=== PATIENT | female | born 1990 | race American Indian/Alaskan Native ===

== ENCOUNTER 2021-02-10 22:47 | Emergency (ER) | payer OTHER ==
[2021-02-11 01:57] LABS: HCG Qualitative,Urine Negative (Negative)
[2021-02-11 01:58] LABS: Bilirubin,Urine NEG (Negative); Blood,Urine NEG (Negative); Color,Urine Yellow (Yellow); Protein,Urine <15 mg/dL mg/dL (Negative)
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
[2021-02-11 07:36] VITALS: BP 134/84
== END 2021-02-11 07:34 | disposition home or self-care (01) ==
LOC: ED 22:47
DX: S16.1XXA Strain of muscle, fascia and tendon at neck level, initial encounter (principal); S29.012A Strain of muscle and tendon of back wall of thorax, initial encounter; S89.92XA Unspecified injury of left lower leg, initial encounter; R51.9 Headache, unspecified; D64.9 Anemia, unspecified; Z79.899 Other long term (current) drug therapy; V49.49XA Driver injured in collision with other motor vehicles in traffic accident, initial encounter; Y92.410 Unspecified street and highway as the place of occurrence of the external cause; Y93.89 Activity, other specified; Y99.8 Other external cause status
CPT/HCPCS: 81001; 81025